=== PATIENT | male | born 1970 | race Two or more races ===

== ENCOUNTER → 2024-09-14 10:49 | Outpatient (BNVA) | payer OTHER, SELFPAY | PROVIDERS: Visit Provider Physician Assistant | DX: S29.012A Strain of muscle and tendon of back wall of thorax, initial encounter (principal); X50.0XXA Overexertion from strenuous movement or load, initial encounter | CPT/HCPCS: 99203 ==

== ENCOUNTER → 2024-09-19 14:00 | Outpatient (BNVA) | payer OTHER, SELFPAY | PROVIDERS: Visit Provider Physician Assistant Medical | DX: S29.012A Strain of muscle and tendon of back wall of thorax, initial encounter (principal); X50.0XXA Overexertion from strenuous movement or load, initial encounter | CPT/HCPCS: 99213 ==

== ENCOUNTER → 2024-10-03 15:44 | Outpatient (BNVA) | payer OTHER, SELFPAY | PROVIDERS: Visit Provider Physician Assistant Medical | DX: S29.012A Strain of muscle and tendon of back wall of thorax, initial encounter (principal); X50.0XXA Overexertion from strenuous movement or load, initial encounter | CPT/HCPCS: 99213 ==

== ENCOUNTER → 2024-10-17 14:44 | Outpatient (BNVA) | payer OTHER, SELFPAY | PROVIDERS: Visit Provider Physician Assistant Medical | DX: S29.012D Strain of muscle and tendon of back wall of thorax, subsequent encounter (principal); X50.0XXD Overexertion from strenuous movement or load, subsequent encounter | CPT/HCPCS: 99213 ==

== ENCOUNTER 2024-10-25 07:06 | Outpatient (RCR) | payer OTHER, SELFPAY ==
[2024-09-29 07:00] VITALS: BP 193/91; PULSE 63; O2SAT 96
--- NOTE | 2024-10-05 10:55 | MHC.PT.EP ---
[facility] [place] [facility] [place] [facility] [place] [facility] [address]es [address] [phone] F: [phone] F: [phone] F: [phone] F: [phone] Physical Therapy Plan of Care Date of Evaluation: 09/29/24 Date of Surgery: Diagnosis: ACUTE THORACIC STRAIN Assessment: 54 YO MALE REF TO PT W DX ACUTE THORACIC PAIN, ONSET 09/14/24 AT WORK- HE WAS OOW UNTIL 09/19/24 AND HAS BEEN ON LIGHT DUTY SINCE RETURN ON 09/19/24. LC HAS AN APPT W HIS MD ON 10/20/24, HE WAS SEEN FOR F/U IN WC YESTERDAY AND HIS BP WAS IN ACCEPTABLE RANGE, HE WILL REMAIN ON LIGHT DUTY x 2 MORE WEEKS. LC' BP THIS AM WAS WNL, SO WE PROCEEDED WITH AND COMPLETED THE PT EVAL. HE DENIES RADICULAR SXS AT THIS TIME. OBJECTIVE FINDINGS: DECR POSTURAL AWARENESS, Rt SH COMPLEX END ROM DEFICITS, RESIDUAL STRENGTH DEFICIT IN Rt SCAPULAR REGION, MILD Rt NEER'S SIGN, TTP THORACIC T8-10 SPINE AND ADJACENT TISSUES, AND DECR MANUEL TO PHYSICALLY DEMANDING ADLS/ WORK TASKS. WE DISCUSSED THE PT POC AND THE Pt AGREES TO PROCEED-> ULTIMATE GOAL : REDUCTION OF THORACIC SXS AND RTW REG DUTY. Frequency and Duration: The patient will be seen 2 X wk X 4 wks Short Term Goals: MET-COMPLETE PT EVAL AND ADD GOALS Pt INDEP POSTURAL SELF CORRECTION INITIATE HEP DECR THORACIC PAIN TO 2-3/10 Long-Term Goals: INDEP W HEP AND SELF SX MGMT TECHN Pt PERFORM 3:3 SIMUL TASKS W PROPER BODY MECHANICS POSTERIOR RC/ SCAP STRENGTH INCR BY 1/2-1 GRADE Treatment Plan: Modalities to reduce pain, spasms and effusion. Manual therapy to restore motion and function. Therapeutic exercise to improve strength and flexibility. Neuromuscular re-education for posture and balance. Therapeutic activities to return to functional activities of daily living. Electronically signed by: CYRUS PAGAN,PT Please sign and return to therapist. Thank you for your referral.
--- NOTE | 2024-10-25 08:18 | MHC.PT.DC ---
[facility] [place] Office [place] Office [place] Office [address] Toi Paredes [address] [phone] F: [phone] F: [phone] F: [phone] F: [phone] Physical Therapy Discharge Report Diagnosis: ACUTE THORACIC STRAIN Date of Surgery: Date of Evaluation: 09/29/24 Date of Discharge: 10/25/24 Treatments to Date: 6 Cancellations to Date: No Shows to Date: Discharge Status: Achieved Goals Improved Function Independent with HEP Discharge Summary: LC HAS PROGRESSED NICELY IN PT- HE HAS MET HIS PT GOALS, IMPROVED POST RC/ SCAPULAR STRENGTH, INDEP W HEP, HE DEMON WFL BODY MECH W SIMUL TASKS, WHICH WILL REDUCE RISK OF FUTURE EXACERBATION- HE COMPREHENDS THE IMPORTANCE OF CONTINUITY W HEP FOR MID BACK STRENGTHENING- HE DENIES ANY PAIN AT THIS TIME IN HIS THORACIC / LUMBAR REGION- > LC IS D/C THIS DATE FROM PT. Electronically signed by: CYRUS PAGAN,PT Please sign and return to therapist. Thank you for your referral.
== END 2024-10-25 08:19 | disposition home or self-care (01) ==
LOC: HO.PT 07:06
PROVIDERS: Visit Provider Physician Assistant Medical
DX: S29.012D Strain of muscle and tendon of back wall of thorax, subsequent encounter (principal)
CPT/HCPCS: 97110; 97140; 97162; 97530; 97535

== ENCOUNTER → 2024-11-07 14:54 | Outpatient (BNVA) | payer OTHER, SELFPAY | PROVIDERS: Visit Provider Physician Assistant Medical | DX: S29.012D Strain of muscle and tendon of back wall of thorax, subsequent encounter (principal); X50.0XXD Overexertion from strenuous movement or load, subsequent encounter; Z02.79 Encounter for issue of other medical certificate | CPT/HCPCS: 99213 ==